=== PATIENT | male | born 1980 | race Caucasian/White ===

== ENCOUNTER 2023-10-23 07:08 | Outpatient (CLI) | payer OTHER ==
[~2023-10-23 07:08] MED LIST: LODINE300 MG PO; METAXALONE800 MG PO
== END 2023-10-23 07:09 | disposition home or self-care (01) ==
LOC: NUCLEAR 07:08
PROVIDERS: ATTEND Physical Medicine & Rehabilitation
DX: M13.0 Polyarthritis, unspecified (principal); R10.9 Unspecified abdominal pain

== ENCOUNTER 2024-07-27 15:04 | Outpatient (CLI) | payer OTHER | END 2024-07-27 15:16 | disposition home or self-care (01) | LOC: MRI 15:04 | PROVIDERS: ATTEND Physical Medicine & Rehabilitation | DX: S86.111A Strain of other muscle(s) and tendon(s) of posterior muscle group at lower leg level, right leg, initial encounter (principal) | CPT/HCPCS: 73718 ==